=== PATIENT | female | born 1995 | race Caucasian/White ===

== ENCOUNTER 2019-02-04 14:33 | Emergency (ER) | payer MEDICAID, OTHER ==
[~2019-02-04] VITALS: Ht 157.5 cm; Wt 67.3 kg
[2019-02-04 14:45] VITALS: BP 128/78
--- NOTE | 2019-02-04 14:48 | NUR ---
PT AMBULATED TO ROOM 12 AT THIS TIME
--- NOTE | 2019-02-04 15:09 | NUR ---
PT C/O FINGER PAIN AFTER PUSHING BOXES AT WORK AT 1400. PT C/O FINGER NAIL BED PAIN. DRIED BLOOD VISIBLE TO NAIL BED. NO REDNESS NO OPEN SKIN NOTED AT THIS TIME. 03/21 PAIN. SITTING IN BED CALM, AWAKE, AND ALERT. LMP 12/24/18. MEDHX: DENIES RX: DENIES
[2019-02-04] MEDS ORDERED: LIDOCAINE 1% 500 MG/50 ML VIAL INJ SCH (15:20)
[2019-02-04] MEDS ORDERED: IBUPROFEN 600 MG TAB PO ONE (15:20)
[2019-02-04] MEDS ORDERED: LIDOCAINE MPF 1% - 5 mL VIAL 0 ML ONE (15:46)
[2019-02-04 16:20] VITALS: BP 122/70
--- NOTE | 2019-02-04 16:21 | NUR ---
Patient discharged with v/s stable. Written and verbal after care instructions given and explained. Patient alert, oriented and verbalized understanding of instructions. Ambulatory with steady gait. All questions addressed prior to discharge. ID band removed. Patient advised to follow up with PMD. Rx of IBU given. Patient educated on indication of medication including possible reaction and side effects. Opportunity to ask questions provided and answered.
== END 2019-02-04 16:21 | disposition home or self-care (01) ==
LOC: MED 14:33
DX: S69.91XA Unspecified injury of right wrist, hand and finger(s), initial encounter (principal); W23.0XXA Caught, crushed, jammed, or pinched between moving objects, initial encounter; Y93.89 Activity, other specified; Y92.89 Other specified places as the place of occurrence of the external cause; Y99.8 Other external cause status
CPT/HCPCS: 99283; J2001

== ENCOUNTER 2022-02-17 14:14 | Emergency (ER) | payer OTHER ==
[~2022-02-17] VITALS: Ht 157.5 cm; Wt 73.9 kg
[2022-02-17 14:20] VITALS: BP 109/79
[2022-02-17] MEDS ORDERED: CEPH-588 PO (15:38)
--- NOTE | 2022-02-17 15:41 | NUR ---
26/F PRESENTS TO ED WITH C/O BIG TOE PAIN ON LEFT FOOT SINCE LAST NIGHT. STATES SHE HAS AN ACRYLIC NAIL ON HER TOE AND HIT IT CAUSING IT TO BEND BACK. NO ACTIVE BLEEDING WITH DRESSING IN PLACE.
[2022-02-17] MEDS ORDERED: IBUPROFEN 800 MG TAB ONE (15:44)
[2022-02-17] MEDS: IBUPROFEN 800 MG TAB PO ONE (15:47)
--- NOTE | 2022-02-17 15:58 | NUR ---
ortho shoe applied to l foot. + cms after application.
[2022-02-17 16:14] VITALS: BP 108/67
== END 2022-02-17 16:15 | disposition home or self-care (01) ==
LOC: MED 14:14
DX: S91.202A Unspecified open wound of left great toe with damage to nail, initial encounter (principal); Z79.899 Other long term (current) drug therapy; W22.8XXA Striking against or struck by other objects, initial encounter; Y93.89 Activity, other specified; Y92.89 Other specified places as the place of occurrence of the external cause; Y99.8 Other external cause status
CPT/HCPCS: 29515; 73660; 99283

== ENCOUNTER 2022-07-13 15:25 | Emergency (ER) | payer OTHER ==
[~2022-07-13] VITALS: Ht 157.5 cm; Wt 76.7 kg
[~2022-07-13 15:25] MED LIST: CEPH-588 PO
[2022-07-13 15:38] VITALS: BP 118/96
--- NOTE | 2022-07-13 16:00 | NUR ---
26YO FEMALE PT C/O MILD VAGINAL BLEEDING X4DAYS. REPORTS X2 TAMPON DAILY USE AND +PREG ATHOME TEST , A2 . LMP 05/31/22 ZEKE 03/07/23. STATES BEING RECOMENDED BY OB TO COME TO ER- R/O ETOPIC PREG AFTER NEGATIVE VAG ULTRASOUND XTODAY. +ZANDRA PELVIC CRAMPING AND NAUSEA. DENIES TAKING MEDICATION, V/D, FEVER OR CHILLS. PT AAOX4, NO VISIBLE DISTRESS. HOB POSITIONED PER COMFORT. HX:DENIES NKA
--- NOTE | 2022-07-13 16:07 | NUR ---
MD DAY AT BEDSIDE FOR EVALUATION
--- NOTE | 2022-07-13 16:22 | NUR ---
LAB AT BEDSIDE
[2022-07-13 16:30] LABS: APPEARANCE,URINE CLEAR (CLEAR); BILIRUBIN,URINE SMALL (NEGATIVE); BLOOD, URINE LARGE (NEGATIVE); COLOR,URINE YELLOW (YELLOW); LEUKOCYTE ESTERASE ,URINE TRACE (NEGATIVE); NITRITE, URINE NEGATIVE (NEGATIVE); PH,URINE 6.5 (5.0-9.0); UGLUCOSE NEGATIVE (NEGATIVE)
[2022-07-13 16:34] LABS: BASOPHILS % (AUTO) 0.4 % (0.0-2.0); EOSINOPHILS % (AUTO) 0.6 % (0.0-4.0); HEMATOCRIT 37.1 % (36-48); HEMOGLOBIN 12.9 g/dL (12.0-16.0); LYMPHOCYTES # (AUTO) 1.3 K/uL (2.5-16.5); LYMPHOCYTES % (AUTO) 23.6 % (20.5-51.1); MEAN CORPUSCULAR HEMOGLOBIN 31 pg (27-31); MEAN CORPUSCULAR HGB CONC 35 g/dL (33-37); MEAN CORPUSCULAR VOLUME 88.4 fL (80-94); MONOCYTES # (AUTO) 0.3 K/uL (0.8-1.0); MONOCYTES % (AUTO) 6.2 % (1.7-9.3); NEUTROPHILS # (AUTO) 3.7 K/uL (1.8-7.7); NEUTROPHILS % (AUTO) 69.2 % (42.2-75.2); PLATELET COUNT (AUTO) 223 K/uL (140-450); RED CELL DISTRIBUTION WIDTH 12.4 % (11.6-13.7); WHITE BLOOD COUNT (AUTO) 5.4 K/uL (4.8-10.8)
--- NOTE | 2022-07-13 16:40 | NUR ---
US AT BEDSIDE
[2022-07-13 16:46] LABS: OTHER CASTS, URINE None Seen /LPF (None Seen); RBC,URINE 20-50 /HPF (0-5)
[2022-07-13 16:53] LABS: CARBON DIOXIDE 26.2 mmol/L (21-32); CREATININE 0.6 mg/dL (0.6-1.3); POTASSIUM 4.2 mmol/L (3.5-5.1)
[2022-07-13 17:47] VITALS: BP 123/63
[2022-07-13] MEDS ORDERED: NITR100C7 PO (18:18)
--- NOTE | 2022-07-13 18:21 | NUR ---
Patient discharged with v/s stable. Written and verbal after care instructions FOR VAGINAL BLEEDING DURING PREG given and explained. Patient alert, oriented and verbalized understanding of instructions. Ambulatory with steady gait. All questions addressed prior to discharge. ID band removed. Patient advised to follow up with PMD. Rx of MACROBID given. Opportunity to ask questions provided and answered.
--- NOTE | 2022-07-13 18:22 | NUR ---
The patient's care was reviewed and supervised by Ruth Cope RN.
== END 2022-07-13 18:21 | disposition home or self-care (01) ==
LOC: MED 15:25
DX: O20.0 Threatened abortion (principal); Z3A.01 Less than 8 weeks gestation of pregnancy
CPT/HCPCS: 36415; 76817; 80048; 81001; 81025; 84702; 85025; 87086; 99284; Q0092